=== PATIENT | female | born 2000 | race African-American/Black ===

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

== ENCOUNTER → 2022-05-21 | Day surgery (SDC) | payer OTHER ==
[~2022-05-21] MED LIST: SODIUM CHLORIDE 0.9% 1,000 ML IV SCH
[2022-05-21 12:55] VITALS: BP 126/63; PULSE 60; RESP 16; TEMP 98.9
--- NOTE | 2022-05-21 14:53 | P.EPPROC ---
- EP Procedure Note Electrophysiology Procedure Note: Diagnosis Recurrent syncope Twelve-lead EKG shows Sinus mechanism normal NH narrow QRS normal ST segments, normal QT interval no delta waves no epsilon waves Tilt table test for protocol Baseline blood pressure 123/60 mmHg, Baseline heart rate 61 beats a minute Patient was tilted upright at night was 70 per protocol No change in heart rate or blood pressure No evidence for neurocardiogenic syncope The patient had recurrent episodes of feeling lightheaded but without any significant change in heart rate or blood pressure Impression normal 12-lead EKG Normal heart rate and blood pressure response to upright tilting Symptoms not associated with any abnormalities in heart rate and blood pressure
== END ==
LOC: CATHEP 12:16
PROVIDERS: ATTEND Internal Medicine Clinical Cardiac Electrophysiology
DX: I47.1 Supraventricular tachycardia (principal); Z82.49 Family history of ischemic heart disease and other diseases of the circulatory system; Z79.899 Other long term (current) drug therapy
CPT/HCPCS: 81025; 93660